=== PATIENT | male | born 1960 | race Caucasian/White ===

== ENCOUNTER → 2024-11-18 07:25 | Outpatient (CLI) | payer OTHER, SELFPAY ==
--- NOTE | 2024-11-18 07:30 | DI.RAD.S_ITS ---
PROCEDURE: XR CERVICAL SPINE 4V OR 5V INDICATIONS: NECK PAIN TECHNIQUE: 5 views of the cervical spine acquired. COMPARISON: None. FINDINGS: Bones: No fractures or dislocations to the C7 level. C6-C7 ACDF hardware. Straightening of the normal cervical lordosis. Oblique images demonstrate no significant bony foraminal stenoses. There are multilevel degenerative changes of the cervical spine with facet and uncovertebral arthropathy, disc height loss with degenerative endplate changes and spurring. Soft tissues: No prevertebral soft tissue swelling. IMPRESSION: Multilevel degenerative changes of the cervical spine status post C6-C7 ACDF. No evidence of hardware failure. No acute osseous abnormalities. Dictated by: Keon Lang M.D. on 11/18/2024 at 8:16 Approved by: Keon Lang M.D. on 11/18/2024 at 8:17
--- NOTE | 2024-11-18 07:30 | DI.RAD.S_ITS ---
PROCEDURE: XR LUMBAR SPINE MIN 4V INDICATIONS: BACK PAIN TECHNIQUE: 5 views of the lumbar spine were acquired, including bilateral oblique views. COMPARISON: None. FINDINGS: Bones: 5 nonrib-bearing vertebrae are present. Straightening of the normal lumbar lordosis. Decreased osseous mineralization. Partial ankylosis of the vertebral bodies. L5-S1 posterior spinal fixation hardware. Possible fracture of 1 of the S1 screws only seen on lateral view. Multilevel discectomy hardware. No vertebral body compression fractures. No suspicious bony lesions. Multilevel degenerative changes with disc height loss, osteophytosis and facet arthropathy. Soft tissues: Overlying bowel gas pattern is normal. No suspicious soft tissue calcifications. Oblique images: No definite pars defects are identified, however degenerative changes and hardware limits evaluation. IMPRESSION: No acute osseous abnormalities. Multilevel degenerative changes. Partial ankylosis of the vertebral bodies which may be postsurgical. L5-S1 posterior spinal fixation hardware. There appears to be a nondisplaced fracture of one of the S1 screws, unable to determine laterality as this is only seen on lateral view. Dictated by: Keon Lang M.D. on 11/18/2024 at 8:12 Approved by: Keon Lang M.D. on 11/18/2024 at 8:16
== END ==
PROVIDERS: PCP Family Medicine; Referring Provider Physical Medicine & Rehabilitation; Visit Provider Physical Medicine & Rehabilitation
DX: M47.812 Spondylosis without myelopathy or radiculopathy, cervical region (principal); M54.2 Cervicalgia; M47.816 Spondylosis without myelopathy or radiculopathy, lumbar region; M54.9 Dorsalgia, unspecified; Z98.1 Arthrodesis status
CPT/HCPCS: 72050; 72110